=== PATIENT | female | born 1990 | race American Indian/Alaskan Native ===

== ENCOUNTER 2020-03-27 15:34 | Emergency (ER) | payer SELFPAY ==
--- NOTE | 2020-03-28 10:24 | Emergency Department Report ---
ED General Adult HPI - General Chief complaint: Dental/Oral Stated complaint: My teeth hurt, I am worried that I have bacteria in my blood, and my hands are crusty PUI?: No Time Seen by Provider: 03/28/20 09:31 Source: patient, EMS ( EMS documentation not available at time of chart dictation ) Mode of arrival: Ambulatory Limitations: No Limitations - History of Present Illness Initial comments: The patient was evaluated in the emergency department for symptoms described in the history of present illness. He/she was evaluated in the context of the global COVID-19 pandemic, which necessitated consideration that the patient might be at risk for infection with the virus that causes COVID-19. Institutional protocols and algorithms that pertain to the evaluation of patients at risk for COVID-19 are in a state of rapid change based on information released by regulatory bodies including the CDC and federal and state organizations. These policies and algorithms were followed during the patient's care in the emergency department. Please note that these policies, procedures and recommendations changed on a rapid basis. During the entire history and physical examination, I am chaperoned by nurse Corie Perez Patient is a 29-year-old female. She is not known to myself previously. She states that she is not . She presents to the ER with multiple complaints. Her first complaint is a dental concern. She has chronic dental caries and erosion, on teeth numbers 17, and 29. She states that she has seen a dentist, who then referred her to either an oral surgeon, or an hydraulic rockbreaker operator, she is not sure. She knows that the dental specialist is on [address] [place] [address], and [place], she was seen 3 weeks ago, and "I am saving up money to have the procedure done. She is not sure if she was discharged with antibiotics, or chlorhexidine. She is worried that because of her dental issues, she may have "bacteria in my blood." The patient denies headache, neck pain, chest pain, abdominal pain, shortness of breath, urinary symptoms, homicidality, suicidality, overdose, hallucinations. She specifically denies fever, shaking chills, rigors, or muscular body pain. She reports anxiety, without suicidality, overdose, hallucinations. 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 This is now resolved. Her anxiety is intermittent. It is painless. Her dental issues have been present for over a month. They are constant. She has mild sensitivity to cold. She is able to chew. No change in voice. -: week(s) Location: mouth Severity scale (0 -10): 0 Quality: other Consistency: other Improves with: other Worsens with: other Associated Symptoms: other - Related Data Previous Rx's Medication Instructions Recorded Last Taken Type Chlorhexidine Mouthwash [Peridex] 15 ml MM BID #1 bottle 03/28/20 Unknown Rx Allergies Allergy/AdvReac Type Severity Reaction Status Date / Time No Known Allergies Allergy Unverified 03/27/20 16:05 ED Review of Systems ROS: Stated complaint: MH Other details as noted in HPI Constitutional: denies: fever, malaise, weakness Eyes: denies: eye discharge ENT: dental pain. denies: ear pain, throat pain, epistaxis Respiratory: denies: cough Cardiovascular: denies: chest pain Gastrointestinal: denies: abdominal pain Genitourinary: denies: dysuria Musculoskeletal: denies: back pain, arthralgia, myalgia Skin: as per HPI Neurological: denies: weakness Psychiatric: anxiety. denies: auditory hallucinations, visual hallucinations, homicidal thoughts, suicidal thoughts ED Past Medical Hx - Surgical History Past Surgical History?: No - Social History Smoking Status: Current Every Day Smoker Substance Use Type: Marijuana - Medications Home Medications: Home Medications Medication Instructions Recorded Confirmed Last Taken Type Chlorhexidine Mouthwash [Peridex] 15 ml MM BID #1 bottle 03/28/20 Unknown Rx ED Physical Exam - General Limitations: No Limitations General appearance: alert, anxious - Head Head exam: Present: atraumatic, normocephalic - Eye Eye exam: Present: normal appearance, EOMI. Absent: nystagmus - ENT ENT exam: Present: normal exam, normal orophraynx, mucous membranes moist, normal external ear exam, other (There is no stridor or dysphonia. The patient is speaking in full sentences. The tongue is midline. The uvula is midline. There is no fetid breath. There is no elevation of the base of the tongue. Dental caries noted on tooth #17, as well as 29. There is no significant surrounding erythema. There is no oral abscess noted.) - Neck Neck exam: Present: normal inspection, full ROM. Absent: tenderness, meningismus, lymphadenopathy - Respiratory Respiratory exam: Present: normal lung sounds bilaterally. Absent: respiratory distress, wheezes, rales, rhonchi, stridor, decreased breath sounds - Cardiovascular Cardiovascular Exam: Present: regular rate, normal rhythm, normal heart sounds. Absent: bradycardia, tachycardia, irregular rhythm, systolic murmur, diastolic murmur, rubs, gallop - GI/Abdominal GI/Abdominal exam: Present: soft. Absent: distended, tenderness, guarding, rebound, rigid, pulsatile mass - Extremities Exam Extremities exam: Present: normal inspection, full ROM, other (2+ pulses noted in the bilateral upper and lower extremities. There is no palpable cord. negative Homans sign. Muscular compartments are soft. The pelvis is stable.). Absent: pedal edema, calf tenderness - Back Exam Back exam: Present: normal inspection, full ROM. Absent: tenderness, CVA tenderness (R), CVA tenderness (L), paraspinal tenderness, vertebral tenderness - Neurological Exam Neurological exam: Present: alert, oriented X3, normal gait, other (No facial droop. Tongue midline. Extraocular movements intact bilaterally. Facial sensation intact to light touch in V1, V2, V3 distribution bilaterally. 5 and a 5 strength in 4 extremities. Sensation intact to light touch in 4 extremities.). Absent: motor sensory deficit - Psychiatric Psychiatric exam: Present: anxious. Absent: homicidal ideation, suicidal ideation - Skin Skin exam: Present: warm, dry, intact, normal color. Absent: rash ED Course Vital Signs 03/27/20 03/27/20 03/28/20 16:07 22:46 02:41 Temperature 98.4 F Pulse Rate 97 H 68 79 Respiratory 16 16 16 Rate Blood Pressure 148/85 Blood Pressure 120/88 120/77 [Right] O2 Sat by Pulse 100 97 100 Oximetry 03/28/20 09:35 Temperature 98.3 F Pulse Rate 80 Respiratory 18 Rate Blood Pressure Blood Pressure 128/72 [Right] O2 Sat by Pulse 99 Oximetry ED Medical Decision Making - Lab Data Vital Signs 03/27/20 03/27/20 03/28/20 16:07 22:46 02:41 Temperature 98.4 F Pulse Rate 97 H 68 79 Respiratory 16 16 16 Rate Blood Pressure 148/85 Blood Pressure 120/88 120/77 [Right] O2 Sat by Pulse 100 97 100 Oximetry 03/28/20 09:35 Temperature 98.3 F Pulse Rate 80 Respiratory 18 Rate Blood Pressure Blood Pressure 128/72 [Right] O2 Sat by Pulse 99 Oximetry - Medical Decision Making Differential diagnosis, including but not limited to: General medical exam, dental caries, anxiety, and dry skin Assessment and plan: 29-year-old female with multiple complaints, who is afebrile, with reassuring vital signs, clinically sober, with a GCS of 15, no historical aspect or physical exam evidence to suggest invasive bacterial illness. In terms of her dental complaint, she appears to have simple dental caries, without evidence of deep space oral or neck infection, no stridor, no evidence of abscess, or significant intraoral infection. She will need to follow-up with her outpatient dentist, oral surgeon. Tylenol and/or ibuprofen as needed for pain kznh-flj-ytroqig, oral chlorhexidine washes, proper dental hygiene. In terms of her hand complaints, her hands appear to have no redness, pus or streaking, they are nontender, there are no obvious cutaneous lesions noted. Continue handwashing, she may continue pbxi-sqb-oiujeyw moisturizers if she so desires. In terms of her complaint of anxiety, she does not meet criteria for hold or involuntary confinement of 1013. Alert, oriented, sober, denying homicidality and suicidality, GCS of 15, and exhibits decision-making capacity. Outpatient follow-up and resources. Critical care attestation.: If time is entered above; I have spent that time in minutes in the direct care of this critically ill patient, excluding procedure time. ED Disposition Clinical Impression: Dental caries, Dry skin, History of anxiety Disposition: DC-01 TO HOME OR SELFCARE Is pt being admited?: No Does the pt Need Aspirin: No Condition: Stable Additional Instructions: Please make certain to brush teeth at least twice daily, and floss on a daily basis. Use the chlorhexidine prescription as directed. Follow-up with a dentist, oral surgeon, or hydraulic rockbreaker operator for dental caries within the next week. Patient may take enbc-nhw-lastwig acetaminophen, alternating with mclm-tbp-lfeasxk ibuprofen, as needed for dental pain. Please continue to wash hands on a frequent and thorough basis, patient may purchase dlqq-bvy-zsbhvqi moisturizer to assist with sensation of dry skin and/or dry hands. Patient may follow-up with an outpatient primary care doctor, therapist, or psychiatrist on an elective basis or on an as-needed basis for history of anxiety. In addition, the patient may present in any of the local outpatient psychiatric facilities if she so desires, for further evaluation for her history of anxiety. Please return to the emergency room right away with new pain, worsened pain, migration of pain, projectile vomiting, change in mental status, confusion, inability to tolerate liquid feeds, homicidality, suicidality, hallucinations, or any new, worsened or different symptoms not present on the initial emergency room evaluation [facility] in [place], [place] COVID info: [facility] Get online care: [employer] Address: [address], [place] [address] Hours: Open 24 hours [facility] in the [place], [place] COV info: [email or web address] Get online care: [employer] Address: [address] [place] [address] , [place] [address] Hours: Open 24 hours Referrals: [facility] [Outside] - 3-5 Days [facility] [Outside] - 3-5 Days [facility] [Provider Group] - 3-5 Days
[2020-03-28 11:28] VITALS: BP 121/84
== END 2020-03-28 11:34 | disposition home or self-care (01) ==
LOC: ED 15:34
DX: K02.9 Dental caries, unspecified (principal); L85.3 Xerosis cutis; F41.9 Anxiety disorder, unspecified; F17.200 Nicotine dependence, unspecified, uncomplicated; F12.90 Cannabis use, unspecified, uncomplicated; Z79.899 Other long term (current) drug therapy
CPT/HCPCS: 99283

== ENCOUNTER 2020-03-29 01:32 | Emergency (ER) | payer SELFPAY ==
--- NOTE | 2020-03-29 06:36 | XRay Report ---
CHEST 2 VIEWS INDICATION / CLINICAL INFORMATION: Chest pain. COMPARISON: None available. FINDINGS: SUPPORT DEVICES: None. HEART / MEDIASTINUM: No significant abnormality. LUNGS / PLEURA: No significant pulmonary or pleural abnormality. No pneumothorax. ADDITIONAL FINDINGS: No significant additional findings. IMPRESSION: 1. No acute findings. Signer Name: Edgar Pierson MD Signed: 03/29/2020 6:32 AM Workstation Name: [id number]
[2020-03-29] MEDS ORDERED: KETOROLAC 30 MG/1 ML INJ IM ONE (08:08)
--- NOTE | 2020-03-29 08:28 | Emergency Department Report ---
ED General Adult HPI - General Chief complaint: Chest Pain Stated complaint: CHEST PAIN Time Seen by Provider: 03/29/20 07:30 Source: patient Mode of arrival: Ambulatory Limitations: No Limitations - History of Present Illness Initial comments: This is a pleasant 29-year-old female who presents the emergency department with chief complaint of mid back pain that started while waiting for her ride in the emergency department. Patient was seen in the emergency department and discharged with a complaint of dental pain and anxiety. She signed back in s tating she did not feel safe going home she denies any known past medical history, current medication use or known allergies to medications. In triage there is a note stating she had complained of chest pain however she denies this to me. She states she only had pain in her mid back when she lifted up her bags that she brought with her. She denies any radiating pain. She denies any injuries. She states she is not sure if she wants to go home due to a friend that she does not live with stating that they should not see each other right now. States her mother and brother live with her and she feels safe with him. She denies any suicidal thoughts, homicidal thoughts, auditory or visual hallucinations. She denies any associated fevers, chills, night sweats, headache, dizziness, blurry vision, nausea, vomiting, diarrhea, chest pain, shortness of breath, saddle anesthesia, urinary or bowel incontinence, urinary retention Severity scale (0 -10): 0 - Related Data Previous Rx's Medication Instructions Recorded Last Taken Type Chlorhexidine Mouthwash [Peridex] 15 ml MM BID #1 bottle 03/28/20 Unknown Rx Cyclobenzaprine HCl [Flexeril 5 MG 5 mg PO TID #8 tab 03/29/20 Unknown Rx TAB] Naproxen 500 mg PO BID #10 tablet 03/29/20 Unknown Rx Allergies Allergy/AdvReac Type Severity Reaction Status Date / Time No Known Allergies Allergy Unverified 03/27/20 16:05 ED Review of Systems ROS: Stated complaint: CHEST PAIN Other details as noted in HPI Comment: All other systems reviewed and negative Constitutional: denies: chills, fever Eyes: denies: eye pain, eye discharge, vision change ENT: denies: ear pain, throat pain Respiratory: denies: cough, shortness of breath, wheezing Cardiovascular: denies: chest pain, palpitations Endocrine: no symptoms reported Gastrointestinal: denies: abdominal pain, nausea, diarrhea Genitourinary: denies: urgency, dysuria, discharge Musculoskeletal: as per HPI, back pain. denies: joint swelling, arthralgia Skin: denies: rash, lesions Neurological: denies: headache, weakness, paresthesias Psychiatric: denies: anxiety, depression Hematological/Lymphatic: denies: easy bleeding, easy bruising ED Past Medical Hx - Past Medical History Previous Medical History?: No - Surgical History Past Surgical History?: No - Social History Smoking Status: Never Smoker Substance Use Type: None - Medications Home Medications: Home Medications Medication Instructions Recorded Confirmed Last Taken Type Chlorhexidine Mouthwash [Peridex] 15 ml MM BID #1 bottle 03/28/20 Unknown Rx Cyclobenzaprine HCl [Flexeril 5 MG 5 mg PO TID #8 tab 03/29/20 Unknown Rx TAB] Naproxen 500 mg PO BID #10 tablet 03/29/20 Unknown Rx ED Physical Exam - General Limitations: No Limitations General appearance: alert, in no apparent distress - Head Head exam: Present: atraumatic, normocephalic - Eye Eye exam: Present: normal appearance - ENT ENT exam: Present: normal exam, normal orophraynx, mucous membranes moist - Neck Neck exam: Present: normal inspection, full ROM. Absent: tenderness, meningismus - Respiratory Respiratory exam: Present: normal lung sounds bilaterally. Absent: respiratory distress, wheezes, rales, rhonchi, stridor, chest wall tenderness - Cardiovascular Cardiovascular Exam: Present: regular rate, normal rhythm, normal heart sounds. Absent: systolic murmur, diastolic murmur, rubs, gallop - GI/Abdominal GI/Abdominal exam: Present: soft, normal bowel sounds. Absent: distended, tenderness, guarding, rebound, rigid - Extremities Exam Extremities exam: Present: normal inspection, full ROM, normal capillary refill. Absent: tenderness, calf tenderness - Back Exam Back exam: Present: normal inspection, full ROM, tenderness (Tenderness to the right thoracic paraspinal area, no midline tenderness to the cervical, thoracic or lumbar spine.), paraspinal tenderness. Absent: CVA tenderness (R), CVA tenderness (L) - Neurological Exam Neurological exam: Present: alert, oriented X3, normal gait - Psychiatric Psychiatric exam: Present: normal affect, normal mood, anxious - Skin Skin exam: Present: warm, dry, intact, normal color. Absent: rash ED Course Vital Signs 03/29/20 05:57 Temperature 98 F Pulse Rate 76 Respiratory 16 Rate Blood Pressure 116/84 [Left] O2 Sat by Pulse 100 Oximetry ED Medical Decision Making - EKG Data EKG shows normal: sinus rhythm Rate: normal - EKG Data Interpretation: normal EKG, other (Normal sinus rhythm with a ventricular rate of 84 bpm, no acute ST or T wave abnormalities, no STEMI, normal axis, normal intervals.) - Radiology Data Radiology results: report reviewed, image reviewed XRay Report Signed Patient: SELVIN OKEEFE MR#: [id number] : 1990 Acct:[id number] Age/Sex: 29 / F ADM Date: 03/29/20 Loc: ED Attending Dr: Ordering Physician: ED MD JOANNA Date of Service: 03/29/20 Procedure(s): XR chest routine 2V Accession Number(s): [id number] cc: ED MD JOANNA Fluoro Time In Minutes: CHEST 2 VIEWS INDICATION / CLINICAL INFORMATION: Chest pain. COMPARISON: None available. FINDINGS: SUPPORT DEVICES: None. HEART / MEDIASTINUM: No significant abnormality. LUNGS / PLEURA: No significant pulmonary or pleural abnormality. No pneumothorax. ADDITIONAL FINDINGS: No significant additional findings. IMPRESSION: 1. No acute findings. Signer Name: Edgar Pierson MD Signed: 03/29/2020 6:32 AM Workstation Name: [id number] Transcribed By: JOHANN Dictated By: Edgar Pierson MD Electronically Authenticated By: Edgar Pierson MD Signed Date/Time: 03/29/20 0632 - Medical Decision Making Patient nontoxic in no acute distress. Vital signs are stable. She had reproducible tenderness to the paraspinal area of the thoracic back. There is no midline tenderness. She was able to flex and extend and ambulatory with steady gait. She had apparently reported chest pain in triage. She is PERC negative and a low risk by Wells criteria ruling out PE. EKG was unremarkable and she has no cardiac risk factors such as hypertension, hyperlipidemia, diabetes, tobacco use, cocaine use, or family history of cardiac disease, sudden cardiac , or early cardiac disease. She had a normal chest x-ray showing no pneumomediastinum, pneumothorax, pneumoperitoneum, no pneumonia or other acute findings. When asked if the patient was here for mental health evaluation she declined stating she was just anxious and denies any homicidal thoughts, suicidal thoughts, auditory or visual hallucinations. I will give the patient injection of Toradol after test returns and is negative and discharge her with short course of muscle relaxers and outpatient follow-up. She instructed to return the emerge part immediately shows any change or worsening symptoms. She did apparently call the police based on how she felt threatened by her friend and I will give her resources for outpatient shelters if she feels unsafe going home however she states she is safe going home with her brother and mother at this time. - Differential Diagnosis strain, sprain, HNP Critical care attestation.: If time is entered above; I have spent that time in minutes in the direct care of this critically ill patient, excluding procedure time. ED Disposition Clinical Impression: History of anxiety Acute thoracic back pain Qualifiers: Back pain laterality: right Qualified Code(s): M54.6 - Pain in thoracic spine Disposition: DC-01 TO HOME OR SELFCARE Is pt being admited?: No Condition: Stable Instructions: Thoracic Strain Prescriptions: Cyclobenzaprine HCl [Flexeril 5 MG TAB] 5 mg PO TID #8 tab Naproxen 500 mg PO BID #10 tablet Referrals: [facility] [Primary Care Provider] - 3-5 Days [facility] [Provider Group] - 3-5 Days Time of Disposition: 08:29
[2020-03-29 10:12] VITALS: BP 104/69
== END 2020-03-29 09:23 | disposition home or self-care (01) ==
LOC: ED 01:32
DX: M54.6 Pain in thoracic spine (principal); F41.9 Anxiety disorder, unspecified; Z79.899 Other long term (current) drug therapy
CPT/HCPCS: 71046; 93005; 96372; 99283; J1885